=== PATIENT | male | born 1995 | race Caucasian/White ===

== ENCOUNTER 2018-08-19 14:15 | Emergency (ER) | payer OTHER, SELFPAY ==
[2018-08-19 14:29] VITALS: BP 152/88; PULSE 93; RESP 18; TEMP 37.2; O2SAT 98
--- NOTE | 2018-08-19 14:51 | ED.GENADUL_ITS ---
Discharge Plan Disposition Patient Disposition: [facility] Discharge Details Chief Complaint: GenMedical Clinical Impression: Noncompliance with medication regimen Primary Care Provider: None,None ED Provider: Jose A Miranda Home Meds and New Rx's Prescriptions: Continued gabapentin 600 mg Tablet 600 mg PO TID RF: 0 temazepam 15 mg Capsule 15 mg PO QHS RF: 0 alprazolam 2 mg Tablet 2 mg PO BID PRNRF: 0 Discharge Instructions Additional Instructions: Please take your medication as prescribed. Please follow-up with present medical services. Please contact your primary care physician to arrange follow-up. Return to the ER for any worsening or new concerning symptoms. Discharge Data Discharge Date/Time-TO BE ENTERED AT DEPARTURE: 08/19/18 14:59 Medical Decision Making 23-year-old male here with correctional officers with concern for withdrawal from not having gabapentin and benzodiazepines as prescribed. Medical screening exam was performed. Patient has mild hypertension. Patient is not exhibiting active withdrawal. I called and spoke with nurse at correctional facility who ensured that the patient will have his meds as prescribed when he returns to correctional facility today. Plan to discharge back to correctional facility. Patient was informed of his elevated blood pressure and advised to follow-up with PCP. Disposition decision was made weighing the risks and benefits of hospitalization versus outpatient treatment and the risk for further decompensation. The patient was stable. Prior to discharge, my usual and customary return precautions were reviewed with the patient - this included follow-up instructions and reason to return to the emergency department if condition worsens, does not improve as expected, or other new concerns arise. HPI General Date/Time Provider Initiated Documentation: 08/19/18 14:44 . Limitations to Documentation: no limitations . Information obtained by: patient . HPI Narrative: 23-year-old male arrives with correctional officers with concern for withdrawal. Patient has been out of his medications including gabapentin and benzodiazepines for the past 3 to 4 days. Patient has had some palpitations and associated headache. Symptoms are mild. No modifiers. Patient requesting refill of medications. No other symptoms. Related Data Home Medications Medication Instructions Recorded Confirmed alprazolam 2 mg PO BID PRN 08/19/18 08/19/18 gabapentin 600 mg PO TID 08/19/18 08/19/18 temazepam 15 mg PO QHS 08/19/18 08/19/18 Allergies Allergy/AdvReac Type Severity Reaction Status Date / Time gluten Allergy Celiac Unverified 08/19/18 14:29 disease General Stated Complaint: GenMedical JESSICA: 3 Review of Systems Review of Systems All systems reviewed & are unremarkable except as noted in HPI and below PFSH Social History Smoking/Tobacco Use Status: Never Alcohol Intake: current Drug use: Daily Substance use type: marijuana Exam Const General: cooperative and no acute distress HENMT Head: normocephalic Mouth: moist mucous membranes Eyes Conjunctivae: normal conjunctivae Sclera: normal sclerae EOM: EOM intact bilaterally Neck Neck: trachea midline and supple Resp Auscultation: clear to auscultation bilaterally, no rales, no rhonchi and no wheezes Cardio Jugular venous pressure: no JVD Rate: regular rate and not tachycardic Rhythm: regular rhythm GI Palpation: soft, not firm, no guarding, no masses, not rigid and nontender Skin General skin exam: no rashes or lesions noted Neuro General: alert, awake, oriented x3 and tone normal Extrem General: no edema Psych Appearance: grossly normal Mental Status: mental status grossly normal Speech and Movement: speech and movement normal Course Vital Signs Temperature 37.2 C 08/19/18 14:29 Pulse 93 H 08/19/18 14:29 Respiratory Rate 18 08/19/18 14:29 Blood Pressure 152/88 H 08/19/18 14:29 Pulse Oximetry 98 08/19/18 14:29 Temperature 37.2 C 08/19/18 14:29 Temperature Source Temporal Artery Scan 08/19/18 14:29 Pulse 93 H 08/19/18 14:29 Respiratory Rate 18 08/19/18 14:29 Respiratory Effort Non-Labored 08/19/18 14:35 Blood Pressure 152/88 H 08/19/18 14:29 Blood Pressure Position Sitting 08/19/18 14:29 Pulse Oximetry 98 08/19/18 14:29 Oxygen Delivery Method Room Air 08/19/18 14:29 Oxygen Flow Rate 0 08/19/18 14:29
== END 2018-08-19 14:59 | disposition home or self-care (01) ==
PROVIDERS: Emergency Provider Student in an Organized Health Care Education/Training Program
DX: T42.4X6A Underdosing of benzodiazepines, initial encounter (principal); T42.6X6A Underdosing of other antiepileptic and sedative-hypnotic drugs, initial encounter; R51 Headache; R00.2 Palpitations; Z91.14 Patient's other noncompliance with medication regimen; I10 Essential (primary) hypertension
CPT/HCPCS: 99285; 99284